=== PATIENT | female | born 1940 | race Caucasian/White ===

== ENCOUNTER → 2018-08-08 | Outpatient (REF) | payer MEDICARE ==
[~2018-08-08] MED LIST: ALEVE220 M1 PO; APAP PO; ASPIRIN LOW DOS81 M2 PO; ASPIRIN LOW DOS81 MG PO; BISOPROLOL PO; CARAFATE OR; CENTRUM SILVER PO; CIPRO500 MG OR; CIPROFLOXACN500 MG PO; COLACE100 MG PO; COUMADIN2.5 MG PO; COUMADIN4 MG; COUMADIN4 MG PO; COUMADIN5 MG PO; D32000 UNIT OR; FAMOTIDINE20 M1 PO; FERR SULFATE325 MG PO; GRANULEX EX; HYDROCHLOROT25 MG OR; HYDROCHLOROTH12.5 MG OR; JANTOVEN4 MG PO; K-DUR/KLOR-CON10 ME1 PO; LISINOPRIL20 MG OR; LORTAB 5 OR; LOVENOX60 MG/0.1 SC; MELOXICAM7.5 MG OR; MYCOSTATIN100000 MG EX; NEURONTIN100 MG PO; OMEPRAZOLE40 MG PO; OXYCOD PO; PERIACTIN2 MG PO; PLAVIX75 MG PO; PRILOSEC40 MG PO; RANITIDINE300 MG OR; SANTYL250 MG/GM EX; TRAMADOL HCL50 MG PO; TYLENOL325 MG PO; ULTRAM50 M1 PO; VERAPAMIL HCL80 MG PO; VERAPAMIL180 M1 OR; VERAPAMIL40 MG PO; VITAMIN D31000 UNI1 PO; WARFARIN2 MG PO; XANAX0.25 MG PO; [UNRECOGNIZED DRUG - OTHER] EX
[2018-08-08 08:28] LABS: ALBUMIN 4.1 g/dL (3.2-5.0); BILIRUBIN, TOTAL 0.3 mg/dL (0.0-1.4); CHOLESTEROL HDL RATIO 2.9 (<4.4 (CALC)); CREATININE 1.5 mg/dL (0.5-1.0); POTASSIUM 3.5 mmol/l (3.5-5.1); TOTAL PROTEIN 7.4 g/dL (6.3-8.2)
== END | disposition home or self-care (01) ==
LOC: LAB 06:55
PROVIDERS: ATTEND Internal Medicine
DX: E78.00 Pure hypercholesterolemia, unspecified (principal)

== ENCOUNTER → 2019-01-09 | Outpatient (REF) | payer MEDICARE ==
[2019-01-09 08:54] LABS: ALBUMIN 4.2 g/dL (3.2-5.0); BILIRUBIN, TOTAL 0.6 mg/dL (0.0-1.4); CHOLESTEROL HDL RATIO 4.1 (<4.4 (CALC)); CREATININE 1.3 mg/dL (0.5-1.0); POTASSIUM 3.8 mmol/l (3.5-5.1); TOTAL PROTEIN 7.3 g/dL (6.3-8.2)
== END | disposition home or self-care (01) ==
LOC: LAB 06:56
PROVIDERS: ATTEND Internal Medicine
DX: E78.00 Pure hypercholesterolemia, unspecified (principal)

== ENCOUNTER 2022-08-30 03:26 | Emergency (ER) | payer MEDICARE ==
[~2022-08-30 03:26] MED LIST changes: +CRESTOR5 M1 PO; +PERCOCET1 TA4 PO; +REQUIP XL2 MG PO; +XARELTO20 MG PO
[2022-08-30 03:30] VITALS: BP 208/69
[2022-08-30 05:04] LABS: HEMATOCRIT 38.6 % (37.0-47.0); HEMOGLOBIN 12.1 g/dl (12.0-16.0); IMMATURE GRANULOCYTES 0.7 % (0.0-5.0); MEAN CELL VOLUME 79.9 fL CALC (80.0-100.0); MEAN CORPUSCULAR HGB 25.1 pG CALC (26.0-32.0); MEAN CORPUSCULAR HGB CONC 31.3 g/dL CAL (32.0-36.0); NEUT# 11.22 thou/uL (2.00-7.15); RED BLOOD COUNT 4.83 mill/uL (4.20-5.60)
[2022-08-30 05:08] LABS: ALBUMIN 4.5 g/dL (3.2-5.0); BILIRUBIN, TOTAL 0.6 mg/dL (0.0-1.4); CREATININE 1.2 mg/dL (0.5-1.0); POTASSIUM 3.7 mmol/l (3.5-5.1); TOTAL PROTEIN 8.2 g/dL (6.3-8.2)
[2022-08-30 05:15] LABS: URINE BILIRUBIN - DIPSTICK NEGATIVE (NEGATIVE); URINE BLOOD DIPSTICK SMALL (NEGATIVE); URINE COLOR YELLOW; URINE GLUCOSE - DIPSTICK NEGATIVE (NEGATIVE); URINE PROTEIN - DIPSTICK 30 mg/dL (NEG-TRACE); URINE UROBILINOGEN - DIPSTICK 0.2 E.U./dL (0.2)
[2022-08-30 05:19] LABS: URINE KETONE Negative (NEGATIVE); URINE LEUK ESTERASE SMALL (NEGATIVE); URINE NITRITE - DIPSTICK NEGATIVE (Negative)
[2022-08-30 05:22] LABS: URINE BACTERIA MANY hpf; URINE EPITHELIAL CELLS FEW EPI/hpf (0-FEW); URINE WBC 20-50 WBC/hpf (0-5); URINE YEAST MODERATE hpf
[2022-08-30] MEDS ORDERED: KEFLEX500 MG PO (05:57)
[2022-08-30] MEDS ORDERED: ONDANSETRON4 MG PO (05:57)
== END 2022-08-30 06:09 | disposition home or self-care (01) ==
LOC: ED 04:06
PROVIDERS: Emergency Medicine
DX: N39.0 Urinary tract infection, site not specified (principal); R11.10 Vomiting, unspecified; I10 Essential (primary) hypertension

== ENCOUNTER 2022-08-31 04:56 | Emergency (ER) | payer MEDICARE ==
[~2022-08-31] VITALS: Ht 160 cm; Wt 72.0 kg
[~2022-08-31 04:56] MED LIST changes: +KEFLEX500 MG PO; +ONDANSETRON4 MG PO
[2022-08-31 06:27] LABS: HEMATOCRIT 37.7 % (37.0-47.0); IMMATURE GRANULOCYTES 0.2 % (0.0-5.0); MEAN CELL VOLUME 78.4 fL CALC (80.0-100.0); MEAN CORPUSCULAR HGB 24.9 pG CALC (26.0-32.0); MEAN CORPUSCULAR HGB CONC 31.8 g/dL CAL (32.0-36.0); NEUT# 10.3 thou/uL (2.00-7.15); RED BLOOD COUNT 4.81 mill/uL (4.20-5.60)
[2022-08-31 06:44] LABS: ALBUMIN 4.5 g/dL (3.2-5.0); BILIRUBIN, TOTAL 0.6 mg/dL (0.0-1.4); CREATININE 1.1 mg/dL (0.5-1.0); POTASSIUM 3.4 mmol/l (3.5-5.1); TOTAL PROTEIN 8.3 g/dL (6.3-8.2)
[2022-08-31 07:37] LABS: D-DIMER 0.35 mg/L (0.19-0.60)
[2022-08-31 07:44] LABS: INTERNATIONAL NORMALIZED RATIO 1.5 RATIO (0.7-1.3); PROTHROMBIN TIME 14.4 SECONDS (9.0-12.5)
[2022-08-31 08:00] VITALS: BP 145/80
== END 2022-08-31 08:00 | disposition left against medical advice (07) ==
LOC: ED 04:56
PROVIDERS: Family Medicine
DX: R06.02 Shortness of breath (principal); R89.7 Abnormal histological findings in specimens from other organs, systems and tissues; I10 Essential (primary) hypertension; Z86.718 Personal history of other venous thrombosis and embolism; Z79.01 Long term (current) use of anticoagulants; Z89.611 Acquired absence of right leg above knee